=== PATIENT | female | born 1985 | race Two or more races ===

== ENCOUNTER 2016-07-23 09:24 | Emergency (ER) | payer OTHER, BC ==
[2016-07-23 09:50] VITALS: BMI 22.4
[2016-07-23] MEDS ORDERED: SODIUM CHLORIDE 1,000 ML IV STA (09:54)
[2016-07-23] MEDS ORDERED: ONDANSETRON 4 MG/2 ML VIAL IVPB ONE (09:55)
[2016-07-23] MEDS ORDERED: ONDANSETRON 4 MG/2 ML VIAL ONE (09:57)
--- NOTE | 2016-07-23 10:03 | PDOC ---
History of Present Illness - General Chief Complaint: Lightheaded Stated Complaint: SICK Time Seen by Provider: 07/23/16 09:38 History Source: Patient Exam Limitations: No Limitations - History of Present Illness Initial Comments: 07/23/16 09:56 31 yo F with no significant PMHx presents with two day history of nausea. She states that two days ago she started diarrhea x1 and then developed fever with chills. The fever went away and she subsequently developed nausea and vomiting x 5 non-bilous and non-bloody. Accompanied by lack of sleep and generalized malaise. Denies CP,MCKENNA, SOB, abd. pain, palpitations. Timing/Duration: 24 hours Past History - Past Medical History Allergies/Adverse Reactions: Allergies Allergy/AdvReac Type Severity Reaction Status Date / Time No Known Allergies Allergy Verified 07/23/16 09:26 Home Medications: Ambulatory Orders No Home Medications 0 dose .ROUTE UTDICT #0 11/26/12 - Psycho/Social/Smoking Cessation Hx Anxiety: No Suicidal Ideation: No Smoking Status: No Smoking History: Never smoked Have you smoked in the past 12 months: No Number of Cigarettes Smoked Daily: 0 Information on smoking cessation initiated: No Hx Alcohol Use: No Drug/Substance Use Hx: No Substance Use Type: None Review of Systems - Review of Systems ABD/GI: Yes: Diarrhea, Nausea, Poor Appetite, Poor Fluid Intake, Vomiting All Other Systems: Reviewed and Negative *Physical Exam - Vital Signs Last Vital Signs Temp Pulse Resp BP Pulse Ox 97.6 F 78 18 148/94 100 07/23/16 09:26 07/23/16 09:26 07/23/16 09:26 07/23/16 09:26 07/23/16 09:26 - Physical Exam General Appearance: Yes: Mild Distress HEENT: positive: EOMI, GERALDINE Neck: positive: Supple Respiratory/Chest: positive: Lungs Clear, Normal Breath Sounds. negative: Respiratory Distress, Accessory Muscle Use Cardiovascular: positive: Regular Rhythm, Regular Rate, S1, S2. negative: Edema , JVD, Murmur Vascular Pulses: Dorsalis-Pedis (R): 2+, Doralis-Pedis (L): 2+ Gastrointestinal/Abdominal: positive: Normal Bowel Sounds, Flat, Soft. negative : Distended, Rebound, Tenderness Musculoskeletal: positive: Normal Inspection. negative: CVA Tenderness Extremity: positive: Normal Inspection, Normal Range of Motion Integumentary: positive: Normal Color, Dry, Warm. negative: Cyanotic, Erythema , Jaundice Neurologic: positive: horseradish maker II-XII NML intact, Fully Oriented, Alert Medical Decision Making - Medical Decision Making 07/23/16 10:14 A:31 yo F with no significant PMHx presents with two day history of nausea. Most likely viral gastroenteritis. P: * Will hydrate with NS 1L bolus. * Zofran for nausea. *DC/Admit/Observation/Transfer Diagnosis at time of Disposition: Gastroenteritis - Discharge Dispostion Disposition: HOME Admit: No - Referrals Referrals: STAFF,NOT ON [Primary Care Provider] - - Patient Instructions Printed Discharge Instructions: DI for Viral Gastroenteritis -- Adult Additional Instructions: Please follow up with your PCP in one week. Drink plenty of fluids. Take Zofran as needed for nausea. Tylenol for headache. Regular diet. Increase activity as tolerated. If symptoms worsen or you develop abdominal pain please return to ED. - Post Discharge Activity Work/School Note: Back to Work
[2016-07-23] MEDS ORDERED: ACETAMINOPHEN 500 MG TABLET (FP) PO ONE (11:21)
[2016-07-23] MEDS ORDERED: ACETAMINOPHEN 325 MG TABLET (FP) ONE (11:23)
[2016-07-23 13:32] VITALS: BP 110/66; PULSE 81; TEMP 98.1
== END 2016-07-23 13:38 | disposition home or self-care (01) ==
LOC: JER 09:24
PROC: 3E033GC Introduction of Other Therapeutic Substance into Peripheral Vein, Percutaneous Approach (ICD-10-PCS; principal; 2016-07-23)
DX: K52.9 Noninfective gastroenteritis and colitis, unspecified (principal)
CPT/HCPCS: 96374; 99284-25

== ENCOUNTER 2016-07-26 07:49 | Emergency (ER) | payer OTHER, BC ==
[2016-07-26 08:01] VITALS: TEMP 98.1; BMI 22.4
[2016-07-26] MEDS ORDERED: SODIUM CHLORIDE 0.9% 1000 ML INFUS.BAG IV ONE (08:14)
[2016-07-26] MEDS ORDERED: KETOROLAC TROMETHAMINE 30 MG/1 ML VIAL IVPUSH ONE (08:14)
[2016-07-26] MEDS ORDERED: METOCLOPRAMIDE HCL INJECTION 10 MG/2 ML VIAL IVPUSH ONE (08:14)
[2016-07-26] MEDS ORDERED: KETOROLAC TROMETHAMINE 30 MG/1 ML VIAL ONE (08:24)
[2016-07-26] MEDS ORDERED: METOCLOPRAMIDE HCL INJECTION 10 MG/2 ML VIAL ONE (08:24)
[2016-07-26 08:55] LABS: URINE APPEARANCE CLEAR; URINE BILIRUBIN NEGATIVE (NEGATIVE); URINE COLOR YELLOW; URINE GLUCOSE (UA) NEGATIVE (NEGATIVE); URINE KETONE NEGATIVE (NEGATIVE); URINE LEUK ESTERASE NEGATIVE (NEGATIVE); URINE NITRITE NEGATIVE (NEGATIVE); URINE PROTEIN NEGATIVE (NEGATIVE); URINE UROBILINOGEN NEGATIVE E.U./dl (0.2-1.0)
[2016-07-26 08:58] LABS: BASOPHIL 0.3 % (0-2.0); EOSINOPHIL 1.7 % (0-4.5); MCH 28.3 pg (25.7-33.7); MCHC 33.6 g/dl (32.0-36.0); MEAN CELL VOLUME 84.2 fl (80-96); MEAN PLT VOLUME 7.9 fl (7.5-11.1); NEUTROPHILS 73.2 % (42.8-82.8); PLATELET COUNT 259 K/MM3 (134-434); RDW 13.5 % (11.6-15.6)
[2016-07-26 09:20] LABS: ALK PHOS 65 U/L (45-117); ANION GAP 7 (8-16); BILIRUBIN,TOTAL 0.4 mg/dL (0.2-1.0); CALCIUM 8.7 mg/dL (8.5-10.1); CO2 29 mmol/L (21-32); COCKROFT - GAULT 115.7615; CREATININE 0.6 mg/dL (0.55-1.02); GLUCOSE,RANDOM 81 mg/dL (74-106); SGOT/AST 16 U/L (15-37); SGPT/ALT 20 U/L (12-78); TOT PROT 7.3 g/dl (6.4-8.2)
[2016-07-26 09:36] LABS: URINE BLOOD 2+ (NEGATIVE)
--- NOTE | 2016-07-26 09:42 | PDOC ---
[id number] 07/26/16 07:54 07/26/16 07:54 07/26/16 07:54 07/26/16 07:54 07/26/16 07:54 ED Treatment Course - LABORATORY CBC & Chemistry Diagram: 07/26/16 08:45 07/26/16 08:45 - ADDITIONAL ORDERS Additional order review: Laboratory Results 07/26/16 07/26/16 07/26/16 08:45 08:45 08:45 Sodium Potassium Chloride Carbon Dioxide Anion Gap BUN Creatinine Creat Clearance w eGFR Random Glucose Calcium Total Bilirubin AST ALT Alkaline Phosphatase Total Protein Albumin Lipase 82 Urine Color Yellow Urine Appearance Clear Urine pH 5.0 D Ur Specific [place] 1.020 Urine Protein Negative Urine Glucose (UA) Negative Urine Ketones Negative Urine Blood 2+ H Urine Nitrite Negative Urine Bilirubin Negative Urine Urobilinogen Negative Ur Leukocyte Esterase Negative Urine HCG, Qual Negative 07/26/16 08:45 Sodium 141 Potassium 4.2 Chloride 105 Carbon Dioxide 29 D Anion Gap 7 L BUN 8 D Creatinine 0.6 Creat Clearance w eGFR > 60 Random Glucose 81 Calcium 8.7 Total Bilirubin 0.4 D AST 16 D ALT 20 D Alkaline Phosphatase 65 Total Protein 7.3 Albumin 4.0 Lipase Urine Color Urine Appearance Urine pH Ur Specific [place] Urine Protein Urine Glucose (UA) Urine Ketones Urine Blood Urine Nitrite Urine Bilirubin Urine Urobilinogen Ur Leukocyte Esterase Urine HCG, Qual 07/26/16 08:45 RBC 5.13 MCV 84.2 MCHC 33.6 RDW 13.5 MPV 7.9 Neutrophils % 73.2 Lymphocytes % 17.3 D Monocytes % 7.5 Eosinophils % 1.7 Basophils % 0.3 - Medications Given in the ED: ED Medications Discontinued Medications Generic Name Dose Route Start Last Admin Trade Name Freq PRN Reason Stop Dose Admin Diphenhydramine HCl 25 mg 07/26/16 08:14 07/26/16 08:43 Benadryl Injection - IVPUSH 07/26/16 08:15 25 mg ONCE ONE Administration Ketorolac Tromethamine 30 mg 07/26/16 08:14 07/26/16 08:44 Toradol Injection - IVPUSH 07/26/16 08:15 30 mg ONCE ONE Administration Metoclopramide HCl 10 mg 07/26/16 08:14 07/26/16 08:44 Reglan Injection - IVPUSH 07/26/16 08:15 10 mg ONCE ONE Administration Sodium Chloride 1,000 ml 07/26/16 08:14 07/26/16 08:43 Normal Saline - IV 07/26/16 08:15 1,000 ml ONCE ONE Administration Medical Decision Making - Medical Decision Making 07/26/16 09:42 Pt seen by the Advanced Practice Provider under my direct supervision Ancillary studies reviewed I agree with plan as outlined by the Advanced Practice Provider JUAN R [place] *DC/Admit/Observation/Transfer Diagnosis at time of Disposition: Gastroenteritis, Ovarian cyst - Discharge Dispostion Disposition: HOME - Prescriptions Prescriptions: Ondansetron [Zofran *Odt*] 8 mg SL BID PRN #12 od.tablet PRN Reason: Nausea And/Or Vomiting - Referrals Referrals: Alfredito Flores MD [Staff Physician] - - Patient Instructions Printed Discharge Instructions: DI for Migraine, DI for Diarrhea and Traveler' s Diarrhea -- Adult, DI for Vomiting -- Adult Additional Instructions: Please follow up with specialists as discussed. If you experience any vaginal bleeding, severe pain to one side of your abdomen, fever, vomiting, diarrhea, or any new or worsening symptoms, please return to the ER. - Post Discharge Activity Work/School Note: Back to Work
[2016-07-26 09:51] LABS: URINE MUCUS MANY; URINE RBC 13 /hpf (0-3); URINE WBC 1 /hpf (3-5)
--- NOTE | 2016-07-26 09:52 | PDOC ---
History of Present Illness - General Chief Complaint: Headache Stated Complaint: VOMITING, NOSE BLEED Time Seen by Provider: 07/26/16 08:02 - History of Present Illness Initial Comments: 07/26/16 09:38 CHIEF COMPLAINT: vomiting, diarrhea, abd pain, headache HISTORY OF PRESENT ILLNESS: 31 yo F with hx of tuboovarian abscess returns to ED with persistent vomiting, diarrhea, and "migraine" x 5 days. Patient states she was seen here on 4 days ago and was discharged with dx of gastroenteritis. She states her headache was feeling better when she went home, but it came back and now she feels "a lot of pressure in my head." She reports a 2 nosebleeds last night and feels very congested and is sneezing. No recent travel or sick contacts. PAST MEDICAL HISTORY: Denies past medical history FAMILY HISTORY: Denies SOCIAL HISTORY: Denies tobacco, alcohol, illicit drug use. SURGICAL HISTORY: Denies ALLERGIES: No known drug allergies REVIEW OF SYSTEMS General/Constitutional: Denies fever or chills. Denies weakness, weight change. HEENT: Denies change in vision. Denies ear pain or discharge. Denies sore throat. Cardiovascular: Denies chest pain or shortness of breath. Respiratory: Denies cough, wheezing, or hemoptysis. Gastrointestinal: Denies nausea, vomiting, diarrhea or constipation. Denies rectal bleeding. Genitourinary: Denies dysuria, frequency, or change in urination. Musculoskeletal: Denies joint or muscle swelling or pain. Denies neck or back pain. Skin and breasts: Denies rash or easy bruising. Neurologic: "I have a really bad migraine." Photophobia. Denies loss of consciousness, or loss of sensation. PHYSICAL EXAM General Appearance: Well-appearing, appropriately dressed. No apparent distress , no intoxication. HEENT: EOMI, PERRLA, normal ENT inspection, normal voice, TMs normal, pharynx normal. No conjunctival pallor. No photophobia, scleral icterus. Neck: Supple. Trachea midline. No tenderness, rigidity, carotid bruit, stridor , lymphadenopathy, or thyromegaly. Respiratory/Chest: Lungs CTAB. Cardiovascular: RRR. S1, S2. Vascular Pulses: Dorsalis-Pedis (R): 2+, Dorsalis-Pedis (L): 2+ Gastrointestinal/Abdominal: Tenderness to R and L upper quadrants. Normal bowel sounds. Abdomen soft, non-distended. No tenderness or rebound tenderness. No organomegaly, pulsatile mass, guarding, hernia, hepatomegaly, splenomegaly. Lymphatic: No adenopathy, tenderness. Musculoskeletal/Extremities: Normal inspection. FROM of all extremities, normal capillary refill. Pelvis Stable. No CVA tenderness. No tenderness to extremities, pedal edema, swelling, erythema or deformity. Integumentary: Appropriate color, dry, warm. No cyanosis, erythema, jaundice or rash Neurologic: security program manager II-XII intact. Fully oriented, alert. Appropriate mood/affect. Motor strength 5/5. No appreciable EOM palsy, facial droop or sensory deficit. Past History - Past Medical History Allergies/Adverse Reactions: Allergies Allergy/AdvReac Type Severity Reaction Status Date / Time No Known Allergies Allergy Verified 07/26/16 07:53 Home Medications: Ambulatory Orders Ondansetron [Zofran *Odt*] 8 mg SL BID PRN #12 od.tablet 07/26/16 Other medical history: DENIES. - Psycho/Social/Smoking Cessation Hx Anxiety: No Suicidal Ideation: No Smoking Status: No Smoking History: Never smoked Have you smoked in the past 12 months: No Number of Cigarettes Smoked Daily: 0 Hx Alcohol Use: No Drug/Substance Use Hx: No Substance Use Type: None *Physical Exam - Vital Signs Last Vital Signs Temp Pulse Resp BP Pulse Ox 98.1 F 96 H 19 130/76 95 07/26/16 07:54 07/26/16 07:54 07/26/16 07:54 07/26/16 07:54 07/26/16 07:54 ED Treatment Course - LABORATORY CBC & Chemistry Diagram: 07/26/16 08:45 07/26/16 08:45 - ADDITIONAL ORDERS Additional order review: Laboratory Results 07/26/16 07/26/16 07/26/16 08:45 08:45 08:45 Sodium Potassium Chloride Carbon Dioxide Anion Gap BUN Creatinine Creat Clearance w eGFR Random Glucose Calcium Total Bilirubin AST ALT Alkaline Phosphatase Total Protein Albumin Lipase 82 Urine Color Yellow Urine Appearance Clear Urine pH 5.0 D Ur Specific [place] 1.020 Urine Protein Negative Urine Glucose (UA) Negative Urine Ketones Negative Urine Blood 2+ H Urine Nitrite Negative Urine Bilirubin Negative Urine Urobilinogen Negative Ur Leukocyte Esterase Negative Urine HCG, Qual Negative 07/26/16 08:45 Sodium 141 Potassium 4.2 Chloride 105 Carbon Dioxide 29 D Anion Gap 7 L BUN 8 D Creatinine 0.6 Creat Clearance w eGFR > 60 Random Glucose 81 Calcium 8.7 Total Bilirubin 0.4 D AST 16 D ALT 20 D Alkaline Phosphatase 65 Total Protein 7.3 Albumin 4.0 Lipase Urine Color Urine Appearance Urine pH Ur Specific [place] Urine Protein Urine Glucose (UA) Urine Ketones Urine Blood Urine Nitrite Urine Bilirubin Urine Urobilinogen Ur Leukocyte Esterase Urine HCG, Qual 07/26/16 08:45 RBC 5.13 MCV 84.2 MCHC 33.6 RDW 13.5 MPV 7.9 Neutrophils % 73.2 Lymphocytes % 17.3 D Monocytes % 7.5 Eosinophils % 1.7 Basophils % 0.3 - RADIOLOGY Radiology Studies Ordered: Category Date Time Status ABDOMEN CT WITH CONTRAST* [CT] Stat CT Scan 07/26/16 08:34 Ordered - Medications Given in the ED: ED Medications Discontinued Medications Generic Name Dose Route Start Last Admin Trade Name Freq PRN Reason Stop Dose Admin Diphenhydramine HCl 25 mg 07/26/16 08:14 07/26/16 08:43 Benadryl Injection - IVPUSH 07/26/16 08:15 25 mg ONCE ONE Administration Ketorolac Tromethamine 30 mg 07/26/16 08:14 07/26/16 08:44 Toradol Injection - IVPUSH 07/26/16 08:15 30 mg ONCE ONE Administration Metoclopramide HCl 10 mg 07/26/16 08:14 07/26/16 08:44 Reglan Injection - IVPUSH 07/26/16 08:15 10 mg ONCE ONE Administration Sodium Chloride 1,000 ml 07/26/16 08:14 07/26/16 08:43 Normal Saline - IV 07/26/16 08:15 1,000 ml ONCE ONE Administration Medical Decision Making - Medical Decision Making 07/26/16 10:44 31 yo F with hx of tuboovarian abscess returns to ED with persistent vomiting, diarrhea, and "migraine" x 5 days. -CBC, CMP -UA, UCx, Upreg -Abd & Pelvis CT -TV US Labs unremarkable. CT: No definite CT evidence of acute appendicitis identified. No CT evidence of acute cholecystitis. 2.3 cm cyst visualize within left paramedian aspect of the pelvi cul-de-sac. 2 cm involuting left ovarian cyst. Subcentimeter right ovarian follicles. 07/26/16 13:30 US results: Normal appearing uterus and normal thickness of the endometrial stripe. Multiple left ovarian simple cyst/follicles with the largest measuring 2x1.4cm consistent with a dominant follicle. no free fluid in the culdesac. No free fluid or fluid collection in the adnexa. Patient reassessed, at this time she states she is feeling better. Advised patient to f/u gynecology and ENT for further evaluation of cysts and possible sinusitis. Advised patient of signs and symptoms for return to ER; patient verbalized understanding and agrees to plan. *DC/Admit/Observation/Transfer Diagnosis at time of Disposition: Gastroenteritis Cyst of ovary Qualifiers: Laterality: left Qualified Code(s): N83.202 - Unspecified ovarian cyst, left side - Discharge Dispostion Disposition: HOME Condition at time of disposition: Stable Admit: No - Prescriptions Prescriptions: Ondansetron [Zofran *Odt*] 8 mg SL BID PRN #12 od.tablet PRN Reason: Nausea And/Or Vomiting - Referrals Referrals: Alfredito Flores MD [Staff Physician] - - Patient Instructions Printed Discharge Instructions: DI for Vomiting -- Adult, DI for Diarrhea and Traveler's Diarrhea -- Adult, DI for Migraine Additional Instructions: Please follow up with specialists as discussed. If you experience any vaginal bleeding, severe pain to one side of your abdomen, fever, vomiting, diarrhea, or any new or worsening symptoms, please return to the ER. - Post Discharge Activity Work/School Note: Back to Work
[2016-07-26 11:09] VITALS: PULSE 82
[2016-07-26 13:58] VITALS: BP 108/69
== END 2016-07-26 13:59 | disposition home or self-care (01) ==
LOC: JER 07:49
PROC: 3E0333Z Introduction of Anti-inflammatory into Peripheral Vein, Percutaneous Approach (ICD-10-PCS; principal; 2016-07-26)
PROC: 3E033GC Introduction of Other Therapeutic Substance into Peripheral Vein, Percutaneous Approach (ICD-10-PCS; 2016-07-26)
DX: K52.9 Noninfective gastroenteritis and colitis, unspecified (principal); N83.202 Unspecified ovarian cyst, left side
CPT/HCPCS: 36415; 74177-TC; 76830-TC; 76856-TC; 80053; 81003; 81015; 83690; 84703; 85025; 87086; 96374; 96375; 99283-25